=== PATIENT | female | born 1990 | race Caucasian/White ===

== ENCOUNTER 2016-10-09 14:36 | Emergency (ER) | payer MEDICAID ==
[2016-10-09 14:55] LABS: BILIRUBIN,URINE NEGATIVE (NEGATIVE)
[2016-10-09 14:58] LABS: HCG UR QUAL NEGATIVE; UA CHARGE (STRIP ONLY) YES; UR CULTURE IF IND NOT INDICATED
[2016-10-09] MEDS ORDERED: KETOROLAC 60 MG/2 ML VIAL IVP STA (15:02)
[2016-10-09] MEDS ORDERED: SODIUM CHLORIDE 0.9% 1,000 ML IV ONE (15:04)
--- NOTE | 2016-10-09 15:05 | ED Physician Documentation ---
History of Present Illness - Stated complaint Stated Complaint: BACK PX - Chief complaint Chief Complaint: Abd Pain - History obtained from History obtained from: Patient, Family - History of Present Illness Timing: Today Pain level max: 9 Pain level now: 9 Quality: sharp, aching, pain Improved by: nothing Worsened by: moving, palpation - Additonal information Additional information: Patient is a 26-year-old female who presents to the emergency department with right flank pain. This is been ongoing since 9 AM today. Has not taken anything for the pain at home. Denies any fevers, nausea, vomiting. States her urine has been dark recently. Is not having dysuria. No history of renal stones Review of Systems Constitutional: denies: Fever, Chills GI: denies: Vomiting : denies: Dysuria, Frequency, Hesitancy, Now EGA Skin: denies: Rash Musculoskeletal: denies: Neck pain Neurologic: denies: Focal weakness, Numbness, Headache PD PAST MEDICAL HISTORY - Past Medical History Past Medical History: No - Past Surgical History Past Surgical History: No - Present Medications Home Medications: Ambulatory Orders Medication Instructions Recorded Confirmed Hydrocodone/Acetaminophen 1 - 2 each PO Q6H PRN #14 tablet 10/09/16 [Hydrocodon-Acetaminophen 5-325] Ibuprofen [Motrin] 800 mg PO Q8H PRN #30 tablet 10/09/16 - Allergies Allergies/Adverse Reactions: Allergies Allergy/AdvReac Type Severity Reaction Status Date / Time zinc oxide Allergy Rash Verified 10/09/16 14:46 - Living Situation Living Situation: reports: With family Living Arrangement: reports: At home - Social History Does the pt smoke?: No Smoking Status: Never smoker Does the pt drink ETOH?: No - Immunizations Immunizations are current?: Yes - POLST Patient has POLST: Yes PD ED PE NORMAL - Vitals Vital signs reviewed: Yes - General General: Alert and oriented X 3, Other (appears uncomfortable) - HEENT HEENT: Moist mucous membranes - Neck Neck: Supple, no meningeal sign - Cardiac Cardiac: RRR, Strong equal pulses - Respiratory Respiratory: No respiratory distress, Clear bilaterally - Abdomen Abdomen: Soft, Non distended, Other (mild TTP RUQ) - Back Back: No spinal TTP, Other (R CVAT) - Derm Derm: Warm and dry, No rash - Extremities Extremities: No calf tenderness / cord - Neuro Neuro: Alert and oriented X 3 - Psych Psych: Normal mood, Normal affect Results - Vitals Vitals: Vital Signs - 24 hr 10/09/16 10/09/16 14:42 16:18 Temperature 36.6 C Heart Rate 96 57 L Respiratory 17 19 Rate Blood Pressure 128/85 H 122/71 O2 Saturation 99 98 Oxygen O2 Source Room air - Labs Labs: Laboratory Tests 10/09/16 10/09/16 10/09/16 14:45 15:09 15:09 WBC 8.8 RBC 4.88 Hgb 14.1 Hct 41.9 MCV 85.7 MCH 29.0 MCHC 33.8 RDW 13.0 Plt Count 243 MPV 8.0 Neut # 5.4 Lymph # 2.4 [place] # 0.7 Eos # 0.2 Baso # 0.0 Absolute Nucleated RBC 0.00 Nucleated RBCs 0.0 Sodium 139 Potassium 4.0 Chloride 103 Carbon Dioxide 29 Anion Gap 7.0 BUN 12 Creatinine 0.6 Estimated GFR (MDRD) 119 Glucose 98 Calcium 9.6 Total Bilirubin 0.5 AST 14 ALT 12 Alkaline Phosphatase 67 Total Protein 7.3 Albumin 4.2 Globulin 3.1 Albumin/Globulin Ratio 1.4 Lipase 22 Urine Color YELLOW Urine Clarity CLEAR Urine pH 6.0 Ur Specific [place] 1.020 Urine Protein NEGATIVE Urine Glucose (UA) NEGATIVE Urine Ketones NEGATIVE Urine Occult Blood TRACE-LYSE Urine Nitrite NEGATIVE Urine Bilirubin NEGATIVE Urine Urobilinogen 0.2 (NORMAL) Ur Leukocyte Esterase NEGATIVE Ur Microscopic Review NOT INDICATED Urine Culture Comments NOT INDICATED Urine HCG, Qual NEGATIVE - Rads (name of study) CT abd/pelvis Radiology: Prelim report reviewed, EMP read contemporaneously, See rad report ( Nonobstructing 1 mm right intrarenal stone with no ureteral stones or obstruction. IUD in place. Cholecystectomy noted, with no dilated ducts. ) PD MEDICAL DECISION MAKING - ED course Complexity details: reviewed results, re-evaluated patient, considered differential (no cauda equina, no spinal epidural abscess, no fracture, no aortic dissection or evidence of aneursym rupture), d/w patient, d/w family ED course: Patient is a 26-year-old female with right flank pain. She does have a nonobstructing 1 mm right intrarenal stone, but no visible ureteral stones or obstruction. Possible she passed a small renal stone today? Possible muscle strain? No evidence of liver or kidney etiology. No evidence of pyelonephritis. Pain well controlled in the emergency department. She is very well-appearing, nontoxic. No fevers. Will trial her on pain medication for home and follow-up with her doctor. Patient and family counseled regarding signs and symptoms for which I believe and urgent re-evaluation would be necessary. Patient with good understanding of and agreement to plan and is comfortable going home at this time This document was made in part using voice recognition software. While efforts are made to proofread this document, sound alike and grammatical errors may occur. Departure - Departure Disposition: Home, Self Care Clinical Impression: Back pain Qualifiers: Back pain location: low back pain Chronicity: acute Back pain laterality: right Sciatica presence: without sciatica Qualified Code(s): M54.5 - Low back pain Condition: Good Instructions: ED Acute Pain [facility]O Follow-Up: your,doctor in 1 week if not better [Other] Prescriptions: Hydrocodone/Acetaminophen [Hydrocodon-Acetaminophen 5-325] 1 - 2 each PO Q6H PRN #14 tablet PRN Reason: pain Ibuprofen [Motrin] 800 mg PO Q8H PRN #30 tablet PRN Reason: PAIN &/OR FEVER Comments: The cause of your symptoms is unclear today. It may be related to a small kidney stone that you have passed. Return if you worsen. Do not drink alcohol or drive while on narcotic pain medicine. Note that many narcotic pain relievers also contain tylenol/acetaminophen. Please ensure that your total dose of acetaminophen from all sources does not exceed 3 grams (3000mg) per day. You may constipated on this medication, take a stool softener such as "Colace" twice a day while you are on it. Also recommend a hlic-nwa-nbbgjhk laxative such as senna or MiraLAX any day that you do not have a bowel movement. If you received narcotic pain medication in the emergency department, do not drive or operate machinery for the next 24 hours. Your blood pressure was elevated today on check in to the emergency department. This does not mean that you have hypertension, it is a common phenomenon to check into the emergency department and have elevated blood pressure. I recommend that you see your primary care physician within the week to have it rechecked when you're feeling better. Discharge Date/Time: 10/09/16 16:39
[2016-10-09] MEDS ORDERED: KETOROLAC 30 MG/ML VIAL ONE (15:11)
[2016-10-09 15:15] LABS: BASOPHILS % (AUTO) 0.5 %; EOSINOPHILS # (AUTO) 0.2 10^3/uL (0.0-0.7); EOSINOPHILS % (AUTO) 2.6 %; HCT - HEMATOCRIT 41.9 % (37.0-47.0); HGB - HEMOGLOBIN 14.1 g/dL (12.0-16.0); LYMPHOCYTES # (AUTO) 2.4 10^3/uL (1.5-3.5); LYMPHOCYTES % (AUTO) 27.7 %; MEAN CORPUSCULAR HGB CONC 33.8 g/dL (32.0-36.0); MEAN CORPUSCULAR VOLUME 85.7 fL (81.0-99.0); MONOCYTES # (AUTO) 0.7 10^3/uL (0.0-1.0); MONOCYTES % (AUTO) 7.8 %; NEUTROPHILS # (AUTO) 5.4 10^3/uL (1.5-6.6); NEUTROPHILS % (AUTO) 61.4 %; RED BLOOD COUNT 4.88 10^6/uL (4.20-5.40); UNCORRECTED WHITE BLOOD COUNT 8.8 x10^3/uL; WHITE BLOOD COUNT 8.8 x10^3/uL (4.8-10.8)
[2016-10-09 15:28] LABS: ALBUMIN/GLOBULIN RATIO 1.4 (1.0-2.2); BILIRUBIN,TOTAL 0.5 mg/dL (0.2-1.0); CALCIUM 9.6 mg/dL (8.5-10.3); CREATININE 0.6 mg/dL (0.4-1.0); TOTAL PROTEIN 7.3 g/dL (6.7-8.2)
[2016-10-09] MEDS ORDERED: IOPAMIDOL-300 100 ML VIAL IVP ONE (15:47)
[2016-10-09] MEDS ORDERED: HYDROcod/ACETAM 5/325 MG TABLET PO STA (16:18)
--- NOTE | 2016-10-09 16:18 | CT Report ---
EXAM: CT ABDOMEN AND PELVIS EXAM DATE: 10/09/2016 03:49 p.m. CLINICAL HISTORY: Right flank and right upper quadrant pain. COMPARISONS: None. TECHNIQUE: Routine helical CT imaging was performed through the abdomen and pelvis. IV contrast: 100 mL of Isovue-300. Enteric contrast: No. Reconstructions: Coronal and sagittal. In accordance with CT protocol optimization, one or more of the following dose reduction techniques w ere utilized for this exam: automated exposure control, adjustment of mA and/or KV based on patient s ize, or use of iterative reconstructive technique. FINDINGS: Lung Bases: Unremarkable. Liver: Normal. No masses. Gallbladder/Bile Ducts: Cholecystectomy. No dilated ducts. Spleen: Normal. Pancreas: Normal. Adrenal Glands: Normal. Kidneys: Nonobstructing 1 mm right intrarenal stone. No ureteral stones or obstruction. Peritoneal Cavity/Bowel: Normal. No free fluid, free air or adenopathy. No masses or acute inflammato ry process. The appendix is well visualized and normal. Pelvic Organs: IUD in place, otherwise unremarkable reproductive organs and bladder. Vasculature: No aneurysms or other significant abnormality. Bones: No significant abnormality. Other: None. IMPRESSION: 1. Nonobstructing 1 mm right intrarenal stone with no ureteral stones or obstruction. 2. IUD in place. 3. Cholecystectomy noted, with no dilated ducts. JESSICAA Referring Provider Line: [phone] SITE ID: [id number]
[2016-10-09 16:20] VITALS: BP 122/71
[2016-10-09] MEDS ORDERED: HYDROcod/ACETAM 5/325 MG TABLET ONE (16:20)
== END 2016-10-09 16:39 | disposition home or self-care (01) ==
LOC: ED 14:36
DX: R10.9 Unspecified abdominal pain (principal); M54.5 Low back pain; N20.0 Calculus of kidney; R03.0 Elevated blood-pressure reading, without diagnosis of hypertension
CPT/HCPCS: 36415; 74177; 80053; 81003; 81025; 83690; 85025; 96374; 99283; 99284; A9270; Q9967; 81001; 87086

== ENCOUNTER 2017-07-30 12:02 | Emergency (ER) | payer MEDICAID ==
[2017-07-30 12:18] VITALS: BP 140/91
--- NOTE | 2017-07-30 12:22 | ED Physician Documentation ---
PD HPI URI - Stated complaint Stated Complaint: FEVER/SWEATING/WEAKNESS,RT EAR PX - Chief complaint Chief Complaint: General - History obtained from History obtained from: Patient - History of Present Illness Timing - onset: How many days ago (5-6) Timing duration: Days Timing details: Gradual onset, Still present Associated symptoms: Fever, Ear pain (just the past day), Nasal congestion (5-6 days), Sore throat, Dry cough Contributing factors: No: Sick contact, Travel, Immunocompromised Similar symptoms before: Has not had sx before Recently seen: Not recently seen Review of Systems Constitutional: reports: Fever, Chills Ears: reports: Ear pain (for a day) Nose: reports: Rhinorrhea / runny nose, Congestion Throat: reports: Sore throat Respiratory: reports: Cough GI: denies: Abdominal Pain, Nausea, Vomiting, Diarrhea : denies: Dysuria Skin: denies: Rash PD PAST MEDICAL HISTORY - Past Medical History Cardiovascular: None Respiratory: None Neuro: None Endocrine/Autoimmune: None - Past Surgical History Past Surgical History: No - Present Medications Home Medications: Ambulatory Orders Medication Instructions Recorded Confirmed Albuterol Sulf [Ventolin Hfa 1 - 2 puffs INH Q4HR PRN #1 inhaler 07/30/17 Inhaler] Amoxicillin 500 mg PO TID #20 capsule 07/30/17 Benzonatate [Tessalon] 100 mg PO TID PRN #25 capsule 07/30/17 Dexamethasone [Decadron] 4 mg PO DAILY #5 tablet 07/30/17 - Allergies Allergies/Adverse Reactions: Allergies Allergy/AdvReac Type Severity Reaction Status Date / Time zinc oxide Allergy Rash Verified 07/30/17 12:18 - Social History Does the pt smoke?: No Smoking Status: Never smoker Does the pt drink ETOH?: No - Immunizations Immunizations are current?: Yes - POLST Patient has POLST: Yes PD ED PE NORMAL - Vitals Vital signs reviewed: Yes - General General: Alert and oriented X 3, No acute distress, Well developed/nourished - HEENT HEENT: Pharynx benign. No: Ears normal (both TMs red with bulging membrane. Left worse than right. ) - Neck Neck: Supple, no meningeal sign, No adenopathy - Cardiac Cardiac: RRR, No murmur - Respiratory Respiratory: Clear bilaterally - Abdomen Abdomen: Soft, Non tender - Derm Derm: Normal color, Warm and dry, No rash - Neuro Neuro: Alert and oriented X 3, No motor deficit, Normal speech Results - Vitals Vitals: Oxygen O2 Source Room air PD MEDICAL DECISION MAKING - ED course Complexity details: considered differential (has had URI and now ear pain. Both ears look red and distended and enough so to look like real OM rather than effect of the URI. Left ear appears worse than right. ), d/w patient Departure - Departure Disposition: 01 Home, Self Care Clinical Impression: Upper respiratory infection Qualifiers: URI type: unspecified URI Qualified Code(s): J06.9 - Acute upper respiratory infection, unspecified Otitis media Qualifiers: Otitis media type: suppurative Chronicity: acute Laterality: bilateral Recurrence: not specified as recurrent Spontaneous tympanic membrane rupture: without spontaneous rupture Qualified Code(s): H66.003 - Acute suppurative otitis media without spontaneous rupture of ear drum, bilateral Condition: Stable Record reviewed to determine appropriate education?: Yes Instructions: ED Otitis Media Acute Adult, ED URI Viral W Wheezing Prescriptions: Albuterol Sulf [Ventolin Hfa Inhaler] 1 - 2 puffs INH Q4HR PRN #1 inhaler PRN Reason: Shortness Of Air/Wheezing Amoxicillin 500 mg PO TID #20 capsule Benzonatate [Tessalon] 100 mg PO TID PRN #25 capsule PRN Reason: Cough Dexamethasone [Decadron] 4 mg PO DAILY #5 tablet Comments: Drink lots of fluids. Tylenol or ibuprofen if needed for pains and fevers. Use your albuterol inhaler 2 puffs 4 times a day for the next 7-10 days for wheezing and cough. Decadron daily for 5 more days to also help with inflammation in the bronchioles and sinuses. This will reduce symptoms. Use Tessalon if needed for cough. Most of this is likely viral but the ear infections particularly may be bacterial and so add amoxicillin 3 times a day for a week. Recheck if not improving well over the next 2-3 days. Discharge Date/Time: 07/30/17 13:10
[2017-07-30] MEDS ORDERED: DEXAMETHASONE 10 MG/ML VIAL PO STA (12:33)
[2017-07-30] MEDS ORDERED: BENZONATATE 100 MG CAPSULE PO STA (12:33)
[2017-07-30] MEDS ORDERED: ALBUTEROL NEB 2.5 MG/3 ML INH STA (12:33)
[2017-07-30] MEDS ORDERED: AMOXICILLIN 250 MG CAPSULE PO STA (12:33)
== END 2017-07-30 13:10 | disposition home or self-care (01) ==
LOC: ED 12:02
DX: J06.9 Acute upper respiratory infection, unspecified (principal); H66.003 Acute suppurative otitis media without spontaneous rupture of ear drum, bilateral
CPT/HCPCS: 94640; 99283; A9270

== ENCOUNTER 2018-01-02 13:30 | Emergency (ER) | payer MEDICAID ==
[2018-01-02] MEDS ORDERED: BUFFERED LIDOCAINE 10 ML SYRINGE SUBQ ONE (14:44)
--- NOTE | 2018-01-02 14:46 | ED Physician Documentation ---
PD HPI SKIN - Stated complaint Stated Complaint: INFECTED SORE LT SIDE - Chief complaint Chief Complaint: Wound - History obtained from History obtained from: Patient - History of Present Illness Timing - onset: Other (Painful lesion that is draining a little bit on the left lower abdominal wall for about 5 days without fevers or chills.) Review of Systems Constitutional: denies: Fever, Chills Respiratory: reports: Reviewed and negative GI: reports: Reviewed and negative : reports: Reviewed and negative PD PAST MEDICAL HISTORY - Past Medical History Cardiovascular: None Respiratory: None Endocrine/Autoimmune: None - Past Surgical History Past Surgical History: No 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 - Present Medications Home Medications: Ambulatory Orders Medication Instructions Recorded Confirmed Clindamycin HCl [Clindamycin 150MG 2 tab PO QID #80 capsule 01/02/18 CAP] Hydrocodone/Acetaminophen 1 - 2 each PO Q6H PRN #14 tablet 01/02/18 [Hydrocodon-Acetaminophen 5-325] - Allergies Allergies/Adverse Reactions: Allergies Allergy/AdvReac Type Severity Reaction Status Date / Time zinc oxide Allergy Rash Verified 01/02/18 13:48 - Social History Does the pt smoke?: No Smoking Status: Never smoker Does the pt drink ETOH?: No Does the pt have substance abuse?: Yes - Immunizations Immunizations are current?: Yes - POLST Patient has POLST: Yes PD ED PE NORMAL - Vitals Vital signs reviewed: Yes - General General: Alert and oriented X 3, No acute distress - Abdomen Abdomen: Soft, Non tender - Derm Derm: Other (2-Centimeter pointed abscess on the left lower abdominal wall with mild surrounding cellulitis. No active drainage.) - Neuro Neuro: Alert and oriented X 3, Normal speech Results - Vitals Vitals: Vital Signs - 24 hr 01/02/18 13:43 Temperature 36.4 C L Heart Rate 89 Respiratory 16 Rate Blood Pressure 147/94 H O2 Saturation 99 Oxygen O2 Source Room air Procedures - Abscess I&D (location) L abd wall Preparation: Betadine, Lidocaine 1% Incision: Incised with scalpel, Purulent drainage, Loculations broken, Packed (with 1/4 inch), Culture obtained Other: Pt tolerated well, Dressing applied, Antibiotic prescribed PD MEDICAL DECISION MAKING - Sepsis Event Vital Signs: Vital Signs - 24 hr 01/02/18 13:43 Temperature 36.4 C L Heart Rate 89 Respiratory 16 Rate Blood Pressure 147/94 H O2 Saturation 99 Oxygen O2 Source Room air Departure - Departure Disposition: 01 Home, Self Care Clinical Impression: Abscess Condition: Good Record reviewed to determine appropriate education?: Yes Instructions: ED Abscess IandD Prescriptions: Clindamycin HCl [Clindamycin 150MG CAP] 2 tab PO QID #80 capsule Hydrocodone/Acetaminophen [Hydrocodon-Acetaminophen 5-325] 1 - 2 each PO Q6H PRN #14 tablet PRN Reason: pain Comments: We are performing a wound culture, the results should be done in 48-72 hours. If antibiotic change is necessary we will call you. Return if worse in the meantime, especially if you develop increased pain, fevers, cannot keep down the medication. Otherwise follow-up with your physician in approximately 2-3 days. Your blood pressure was elevated today on check into the emergency department. This does not mean that you have hypertension, it is a common phenomenon to come to the emergency department and have elevated blood pressure. I recommend that you see your primary care physician within the week to have it rechecked when you are feeling better. Forms: Activity restrictions
[2018-01-02 15:36] VITALS: BP 138/97
== END 2018-01-02 15:36 | disposition home or self-care (01) ==
LOC: ED 13:30
DX: L02.211 Cutaneous abscess of abdominal wall (principal); L03.311 Cellulitis of abdominal wall; R03.0 Elevated blood-pressure reading, without diagnosis of hypertension
CPT/HCPCS: 10060; 87070; 87181; 87205; 99282; 99283

== ENCOUNTER 2018-01-04 10:05 | Emergency (ER) | payer MEDICAID ==
[2018-01-04 10:23] VITALS: BP 119/69
--- NOTE | 2018-01-04 11:16 | ED Physician Documentation ---
PD HPI WOUND RECHECK - Stated complaint Stated Complaint: PACKING REMOVAL - Chief complaint Chief Complaint: Wound - Histroy obtained from History obtained from: Patient, Family - History of Present Illness Location: Abdomen Timing - onset: How many weeks ago (1) Associated symptoms: Redness, Swelling, Drainage Similar symptoms before: Diagnosis (abscess) Recently seen: Emergency Dept - Additional information Additional information: 27-year-old female is seen in the emergency department 2 days ago for an abscess that is been present for about 5 days in the left anterior abdominal wall. She had this incised and drained and packing was placed. A culture was obtained. She has been placed on clindamycin. 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 She is noted that yesterday pain was severe and she has had to take her pain medication every 4 hours. She indicates that today the pain is somewhat better as is the amount of redness. 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 - Present Medications Home Medications: Ambulatory Orders Medication Instructions Recorded Confirmed Clindamycin HCl [Clindamycin 150MG 2 tab PO QID #80 capsule 01/02/18 CAP] Hydrocodone/Acetaminophen 1 - 2 each PO Q6H PRN #14 tablet 01/02/18 [Hydrocodon-Acetaminophen 5-325] HYDROcod/ACETAM 5/325 [[place] 5/325] 1 - 2 ea PO Q6H PRN #15 tablet 01/04/18 - Allergies Allergies/Adverse Reactions: Allergies Allergy/AdvReac Type Severity Reaction Status Date / Time zinc oxide Allergy Rash Verified 01/04/18 10:23 - Social History Does the pt smoke?: No Smoking Status: Never smoker Does the pt drink ETOH?: No Does the pt have substance abuse?: Yes - Immunizations Immunizations are current?: Yes - POLST Patient has POLST: Yes PD ED PE NORMAL - Vitals Vital signs reviewed: Yes (normal ) - General General: No acute distress, Well developed/nourished - HEENT HEENT: Atraumatic, PERRL, EOMI - Respiratory Respiratory: No respiratory distress - Abdomen Abdomen: Other (over the left lower abdominal wall is an area of erythema with a wick with drainage and the area is tender. The area is 5cm in size. 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, No motor deficit, No sensory deficit, Normal speech Eye Opening: Spontaneous Motor: Obeys Commands Verbal: Oriented GCS Score: 15 - Psych Psych: Normal mood, Normal affect Results - Vitals Vitals: Vital Signs - 24 hr 01/04/18 10:22 Temperature 36.4 C L Heart Rate 78 Respiratory 16 Rate Blood Pressure 119/69 O2 Saturation 96 Oxygen O2 Source Room air PD MEDICAL DECISION MAKING - ED course Complexity details: reviewed old records, considered differential, d/w patient, d/w family ED course: 27 year old female with an abscess to the left lower abdominal wall had incision and drainage done 2 days ago here in the emergency department with packing placed. She is continued to have drainage she has continued to have pain and redness and she presents to the emergency department for recheck of the wound to day. She does state that is slightly better today than yesterday. The margins of the wound are marked in 3 successions the center area around the abscess itself which is the most erythematous there is a 5 cm area surrounding that that is less erythematous and much larger area surrounding that that is pale pink and section of the packing is removed and drainage expressed. Patient is instructed to return to the emergency department tomorrow for for reevaluation of her wound. - Sepsis Event Vital Signs: Vital Signs - 24 hr 01/04/18 10:22 Temperature 36.4 C L Heart Rate 78 Respiratory 16 Rate Blood Pressure 119/69 O2 Saturation 96 Oxygen O2 Source Room air Departure - Departure Disposition: 01 Home, Self Care Clinical Impression: Abscess Condition: Stable Instructions: ED Abscess IandD Follow-Up: [facility] [Provider Group] Prescriptions: HYDROcod/ACETAM 5/325 [[place] 5/325] 1 - 2 ea PO Q6H PRN #15 tablet PRN Reason: Pain Comments: Use a warm compress to the area twice per day and return to the emergency department tomorrow for reevaluation of this wound. Forms: Activity restrictions
== END 2018-01-04 11:55 | disposition home or self-care (01) ==
LOC: ED 10:05
DX: L02.211 Cutaneous abscess of abdominal wall (principal); R10.32 Left lower quadrant pain; A49.02 Methicillin resistant Staphylococcus aureus infection, unspecified site
CPT/HCPCS: 99283

== ENCOUNTER 2018-01-05 09:23 | Emergency (ER) | payer MEDICAID ==
--- NOTE | 2018-01-05 12:07 | ED Physician Documentation ---
PD HPI ABD PAIN - History obtained from History obtained from: Patient, Family - History of Present Illness Timing - onset: How many days ago (8) Timing - duration: Days (8) Timing - details: Gradual onset, Still present Quality: Sharp, Pain Location: LLQ Associated symptoms: No: Fever, Nausea Similar symptoms before: Diagnosis (abscess) Recently seen: Emergency Dept - Additional information Additional information: 27-year-old female with an abscess to the left abdominal wall has had the abdomen abscess incised and drained 3 days ago she returned to the emergency department yesterday with an increase in her symptoms some packing was removed. She continued to have symptoms the margins of the infection were marked and she was continued on clindamycin. Culture of the abscess revealed MRSA sensitive to Clinda and she returns today for reexamination and further packing removal. She states that today her pain is much improved in general but there is continued redness. She did use a heating pack to the area last night. Review of Systems Constitutional: denies: Fever, Chills, Myalgias, Fatigue Eyes: denies: Decreased vision Ears: denies: Ear pain Nose: denies: Congestion Throat: denies: Sore throat Cardiac: denies: Chest pain / pressure Respiratory: denies: Dyspnea, Cough GI: reports: Abdominal Pain. 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 - Present Medications Home Medications: Ambulatory Orders Medication Instructions Recorded Confirmed Clindamycin HCl [Clindamycin 150MG 2 tab PO QID #80 capsule 01/02/18 CAP] Hydrocodone/Acetaminophen 1 - 2 each PO Q6H PRN #14 tablet 01/02/18 [Hydrocodon-Acetaminophen 5-325] RX: HYDROcod/ACETAM 5/325 [[place] 1 - 2 ea PO Q6H PRN #15 tablet 01/04/18 5/325] - Allergies Allergies/Adverse Reactions: Allergies Allergy/AdvReac Type Severity Reaction Status Date / Time zinc oxide Allergy Rash Verified 01/04/18 10:23 - Social History Does the pt smoke?: No Smoking Status: Never smoker Does the pt drink ETOH?: No Does the pt have substance abuse?: Yes - Immunizations Immunizations are current?: Yes - POLST Patient has POLST: Yes PD ED PE NORMAL - Vitals Vital signs reviewed: Yes (hypertensive ) - General General: Alert and oriented X 3, No acute distress, Well developed/nourished - HEENT HEENT: Atraumatic, PERRL - Respiratory Respiratory: No respiratory distress - Abdomen Abdomen: Soft, Other (over the left lower abdomen there is an abscess site that appears improved from yesterday and does not cause the patient pain to examine as it did yesterday. There is erythema that has lightened over the sourrounding area. There is very light erythema that has extended beyond the borders drawn yesterday. It is non-tender and non-blancing. It seems it may be from the heating pack. The central abscess area itself continues to drain and the remainder of the packing is removed. Dense erythema of this area has receded from the markings from yesterday .) - Derm Derm: Normal color, Warm and dry, No rash - Extremities Extremities: No deformity, No edema - Neuro Neuro: Alert and oriented X 3, No motor deficit, No sensory deficit, Normal speech Eye Opening: Spontaneous Motor: Obeys Commands Verbal: Oriented GCS Score: 15 - Psych Psych: Normal mood, Normal affect Results - Vitals Vitals: Vital Signs - 24 hr 01/05/18 01/05/18 09:42 12:43 Temperature 36.3 C L 36.7 C Heart Rate 91 72 Respiratory 18 16 Rate Blood Pressure 132/84 H 123/77 O2 Saturation 96 98 Oxygen O2 Source Room air PD MEDICAL DECISION MAKING - ED course Complexity details: reviewed old records, considered differential, d/w patient, d/w family ED course: 27-year-old female with an abscess to the left lower abdominal wall continues to need surveillance. She does not have obvious worsening but there is concerned about the erythema spreading beyond the margins. This erythema looks like it is nonblanching and I am concerned that this may be related to her use of the heating pack and may have nothing to do with the infection. Certainly the patient has marked improvement in her level of pain and discomfort. I have asked the patient return in the next 1-2 days for reexamination. - Sepsis Event Vital Signs: Vital Signs - 24 hr 01/05/18 01/05/18 09:42 12:43 Temperature 36.3 C L 36.7 C Heart Rate 91 72 Respiratory 18 16 Rate Blood Pressure 132/84 H 123/77 O2 Saturation 96 98 Oxygen O2 Source Room air Departure - Departure Disposition: 01 Home, Self Care Clinical Impression: Abscess Condition: Stable Instructions: ED Abscess IandD Follow-Up: [facility] [Provider Group] Comments: Return here for re-exam in the next 1-2 days. Forms: Activity restrictions Discharge Date/Time: 01/05/18 12:44
[2018-01-05 12:44] VITALS: BP 123/77
== END 2018-01-05 12:44 | disposition home or self-care (01) ==
LOC: ED 09:23
DX: L02.211 Cutaneous abscess of abdominal wall (principal); B95.62 Methicillin resistant Staphylococcus aureus infection as the cause of diseases classified elsewhere
CPT/HCPCS: 99282; 99283

== ENCOUNTER 2018-01-09 09:27 | Emergency (ER) | payer MEDICAID ==
[2018-01-09 09:32] VITALS: BP 132/78
--- NOTE | 2018-01-09 09:41 | ED Physician Documentation ---
PD HPI WOUND RECHECK - Stated complaint Stated Complaint: WOUND CHECK - Chief complaint Chief Complaint: Wound - Histroy obtained from History obtained from: Patient - History of Present Illness Location: Abdomen Timing - onset: How many weeks ago (2) Similar symptoms before: Diagnosis (abscess) Recently seen: Emergency Dept - Additional information Additional information: 27-year-old female with a staph abscess that was incised and drained 1 week ago had significant infectious load associated with this and she had to follow-up visits in the emergency department for concerning appearing infection. This now appears to have resolved and she has only the wound left to heal. She has several more days of clindamycin to take. She wants a note to go back to work. Review of Systems Constitutional: denies: Fever, Chills, Myalgias, Fatigue, Sweats Eyes: denies: Decreased vision Ears: denies: Ear pain Nose: denies: Congestion Respiratory: denies: Cough GI: denies: Vomiting Skin: reports: Other (healing abscess to the left abd). 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 - Present Medications Home Medications: Ambulatory Orders Medication Instructions Recorded Confirmed Clindamycin HCl [Clindamycin 150MG 2 tab PO QID #80 capsule 01/02/18 CAP] - Allergies Allergies/Adverse Reactions: Allergies Allergy/AdvReac Type Severity Reaction Status Date / Time zinc oxide Allergy Rash Verified 01/09/18 09:32 - Social History Does the pt smoke?: No Smoking Status: Never smoker Does the pt drink ETOH?: No Does the pt have substance abuse?: Yes - Immunizations Immunizations are current?: Yes - POLST Patient has POLST: Yes PD ED PE NORMAL - Vitals Vital signs reviewed: Yes (hypertensive mild ) - General General: Alert and oriented X 3, No acute distress, Well developed/nourished - HEENT HEENT: Atraumatic, PERRL, EOMI - Respiratory Respiratory: No respiratory distress - Abdomen Abdomen: Soft, Non tender, Other (There is a residual 3cm round area of skin ulceration with a granulating base and no surrounding erythema. The wound is much improved from prior visit and the cellulitis is resolved. 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, No motor deficit, No sensory deficit, Normal speech Eye Opening: Spontaneous Motor: Obeys Commands Verbal: Oriented GCS Score: 15 - Psych Psych: Normal mood, Normal affect Results - Vitals Vitals: Vital Signs - 24 hr 01/09/18 09:29 Temperature 36.8 C Heart Rate 94 Respiratory 18 Rate Blood Pressure 132/78 H O2 Saturation 98 Oxygen O2 Source Room air PD MEDICAL DECISION MAKING - ED course Complexity details: reviewed old records, reviewed results, re-evaluated patient, considered differential, d/w patient ED course: 27-year-old female with a abdominal wall abscess that is healing appears to have resolved her cellulitis and has only the healing of the wound left. This looks like it is granulating well and she is expected to have full recovery. I have instructed her to continue using a dressing over this to finish her antibiotic and to use some Neosporin as a dressing. - Sepsis Event Vital Signs: Vital Signs - 24 hr 01/09/18 09:29 Temperature 36.8 C Heart Rate 94 Respiratory 18 Rate Blood Pressure 132/78 H O2 Saturation 98 Oxygen O2 Source Room air Departure - Departure Disposition: 01 Home, Self Care Clinical Impression: Abscess Condition: Stable Instructions: ED Abscess IandD Follow-Up: [facility] [Provider Group] Forms: Activity restrictions
== END 2018-01-09 09:56 | disposition home or self-care (01) ==
LOC: ED 09:27
DX: L02.11 Cutaneous abscess of neck (principal)
CPT/HCPCS: 99281; 99282

== ENCOUNTER 2018-08-11 07:24 | Emergency (ER) | payer SELFPAY ==
--- NOTE | 2018-08-11 07:42 | ED Physician Documentation ---
PD HPI CHEST PAIN - Stated complaint Stated Complaint: CHEST PX - Chief complaint Chief Complaint: General - History obtained from History obtained from: Patient, Family - History of Present Illness Timing - onset: Enter time (429), Today Timing - onset during: Sleep Timing - duration: Hours Timing - details: Abrupt onset, Still present Quality: Sharp, Pain Location: Left chest Improved by: Rest Worsened by: Inspiration, Movement Associated symptoms: Shortness of air. No: Diaphoresis, Nausea, Vomiting, Feeling faint / dizzy, General Weakness, Palpitations, Cough Similar symptoms before: Has not had sx before Recently seen: Not recently seen - Additional information Additional information: Previously well 28-year-old female awoke at 430 this morning from a sleep with left-sided chest pain. She states the pain is worse with each inspiration and that she has not had this pain previously and she was not ill prior to this. She denies any recent URI symptoms. She denies any wheezing associated with this she denies any swelling of her extremities cough fever or abdominal pain. Review of Systems Constitutional: denies: Fever, Chills, Myalgias Eyes: denies: Decreased vision Ears: denies: Ear pain Nose: denies: Rhinorrhea / runny nose, Congestion Throat: denies: Sore throat Cardiac: reports: Chest pain / pressure. 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 - Present Medications Home Medications: Ambulatory Orders Medication Instructions Recorded Confirmed Clindamycin HCl [Clindamycin 150MG 2 tab PO QID #80 capsule 01/02/18 CAP] Hydrocodone/Acetaminophen 1 - 2 each PO Q6H PRN #14 tablet 08/11/18 [Hydrocodon-Acetaminophen 5-325] - Allergies Allergies/Adverse Reactions: Allergies Allergy/AdvReac Type Severity Reaction Status Date / Time zinc oxide Allergy Rash Verified 01/09/18 09:32 - Social History Does the pt smoke?: No Smoking Status: Never smoker Does the pt drink ETOH?: No Does the pt have substance abuse?: Yes - Immunizations Immunizations are current?: Yes - POLST Patient has POLST: Yes PD ED PE NORMAL - Vitals Vital signs reviewed: Yes (hypertensive ) - General General: Alert and oriented X 3, Well developed/nourished, Other (nasal quality to the voice is explained by the patient as relating to crying from pain ) - HEENT HEENT: Atraumatic, PERRL, EOMI, Ears normal, Moist mucous membranes, Other (2+ cryptic tonsils without exudate) - Neck Neck: Supple, no meningeal sign, No bony TTP - Cardiac Cardiac: RRR, No murmur - Respiratory Respiratory: No respiratory distress, Clear bilaterally, Other (no specific chest wall tenderness ) - Abdomen Abdomen: Soft, Non tender - Back Back: No CVA TTP, No spinal TTP - Derm Derm: Normal color, Warm and dry, No rash - Extremities Extremities: No deformity, No edema - Neuro Neuro: Alert and oriented X 3, 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 services 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, No motor deficit, No sensory deficit, Normal speech Eye Opening: Spontaneous Motor: Obeys Commands Verbal: Oriented GCS Score: 15 - Psych Psych: Normal mood, Normal affect Results - Vitals Vitals: Vital Signs - 24 hr 08/11/18 08/11/18 07:36 10:12 Temperature 98.1 C H Heart Rate 84 80 Respiratory 16 14 Rate Blood Pressure 128/88 H 132/84 H O2 Saturation 99 99 Oxygen O2 Source Room air - EKG (time done) 0734 Rate: Rate (enter#) (80) Ischemia: Normal ST segments Compare to prior EKG: Old EKG unavailable Computer interpretation: Agree with computer - Labs Labs: Laboratory Tests 08/11/18 08/11/18 08/11/18 08:52 08:52 08:52 WBC 7.9 RBC 4.61 Hgb 13.0 Hct 39.8 MCV 86.4 MCH 28.2 MCHC 32.6 RDW 13.3 Plt Count 195 MPV 8.6 Neut # (Auto) 5.2 Lymph # (Auto) 1.8 Dixon # (Auto) 0.7 Eos # (Auto) 0.2 Baso # (Auto) 0.0 Absolute Nucleated RBC 0.00 Nucleated RBC % 0.0 Sodium 140 Potassium 4.0 Chloride 105 Carbon Dioxide 28 Anion Gap 7.0 BUN 9 Creatinine 0.6 Estimated GFR (MDRD) 117 Glucose 106 H Calcium 8.9 Total Bilirubin 0.7 AST 14 ALT 11 Alkaline Phosphatase 56 Troponin I < 0.04 Total Protein 7.1 Albumin 4.0 Globulin 3.1 Albumin/Globulin Ratio 1.3 Lipase 25 - Rads (name of study) chest 2 view Radiology: Prelim report reviewed (Impression: No acute cardiopulmonary abnormality.), EMP read indepedently, See rad report PD MEDICAL DECISION MAKING - ED course Complexity details: reviewed old records, reviewed results, re-evaluated patient, considered differential, d/w patient ED course: 28 y/o female with left sided chest pain with inspiration is diagnosed with pleurisy and given a dose of decadron. Departure - Departure Disposition: 01 Home, Self Care Clinical Impression: Pleurisy Condition: Stable Instructions: ED Chest Pain Pleurisy Follow-Up: [facility] [Provider Group] Prescriptions: Hydrocodone/Acetaminophen [Hydrocodon-Acetaminophen 5-325] 1 - 2 each PO Q6H PRN #14 tablet PRN Reason: pain Forms: Activity restrictions Discharge Date/Time: 08/11/18 10:12
[2018-08-11] MEDS ORDERED: DEXAMETHASONE 10 MG/ML VIAL PO STA (08:21)
[2018-08-11] MEDS ORDERED: CHERRY SYRUP 10 ML UDC PO ONE (08:21)
--- NOTE | 2018-08-11 08:51 | XRAY Report ---
Reason: left sided chest pain with insp Procedure Date: 08/11/2018 Accession Number: [id number] / [id number] Procedure: XR - Chest 2 View X-Ray CPT Code: 07479 FULL RESULT: EXAM: CHEST RADIOGRAPHY EXAM DATE: 08/11/2018 08:34 AM. CLINICAL HISTORY: Left sided chest pain with insp. COMPARISON: CHEST 2 VIEW PA/LAT 01/07/2015 3:24 PM. TECHNIQUE: 2 views. FINDINGS: Lungs/Pleura: No focal opacities evident. No pleural effusion. No pneumothorax. Normal volumes. Mediastinum: Heart and mediastinal contours are unremarkable. Other: None. IMPRESSION: No acute cardiopulmonary abnormality. RADIA
[2018-08-11 09:02] LABS: BASOPHILS % (AUTO) 0.5 %; EOSINOPHILS # (AUTO) 0.2 10^3/uL (0.0-0.7); EOSINOPHILS % (AUTO) 2.1 %; LYMPHOCYTES # (AUTO) 1.8 10^3/uL (1.5-3.5); MEAN CORPUSCULAR HEMOGLOBIN 28.2 pg (27.0-31.0); MEAN CORPUSCULAR HGB CONC 32.6 g/dL (32.0-36.0); MEAN CORPUSCULAR VOLUME 86.4 fL (81.0-99.0); MEAN PLATELET VOLUME 8.6 fL (7.9-10.8); MONOCYTES # (AUTO) 0.7 10^3/uL (0.0-1.0); MONOCYTES % (AUTO) 8.5 %; NEUTROPHILS # (AUTO) 5.2 10^3/uL (1.5-6.6); NEUTROPHILS % (AUTO) 65.9 %; PLT - PLATELET COUNT 195 10^3/uL (130-450); RED BLOOD COUNT 4.61 10^6/uL (4.20-5.40); RED CELL DISTRIBUTION WIDTH 13.3 % (12.0-15.0); WHITE BLOOD COUNT 7.9 x10^3/uL (4.8-10.8)
[2018-08-11 09:18] LABS: ALBUMIN/GLOBULIN RATIO 1.3 (1.0-2.2); BILIRUBIN,TOTAL 0.7 mg/dL (0.2-1.0); CALCIUM 8.9 mg/dL (8.5-10.3); CREATININE 0.6 mg/dL (0.4-1.0); TOTAL PROTEIN 7.1 g/dL (6.7-8.2)
[2018-08-11 10:12] VITALS: BP 132/84
== END 2018-08-11 10:12 | disposition home or self-care (01) ==
LOC: ED 07:24
DX: R09.1 Pleurisy (principal)
CPT/HCPCS: 36415; 71046; 80053; 83690; 84484; 85025; 93005; 99283; 99284

== ENCOUNTER 2019-03-10 23:00 | Outpatient (CLI) | payer SELFPAY | END 2019-03-10 23:01 | disposition critical access hospital (66) | LOC: EMS 23:00 | PROVIDERS: ATTEND Surgery | DX: R55 Syncope and collapse (principal); R41.82 Altered mental status, unspecified; R11.10 Vomiting, unspecified | CPT/HCPCS: A0425; A0429 ==

== ENCOUNTER 2019-03-10 23:16 | Emergency (ER) | payer SELFPAY ==
[2019-03-10] MEDS ORDERED: ONDANSETRON 4 MG/2 ML VIAL ONE (23:18)
[2019-03-10 23:24] VITALS: BP 144/80
[2019-03-10] MEDS ORDERED: SODIUM CHLORIDE 0.9% 1,000 ML IV ONE (23:36)
--- NOTE | 2019-03-10 23:36 | ED Physician Documentation ---
History of Present Illness - Stated complaint Stated Complaint: HBD - Chief complaint Chief Complaint: Abd Pain - History obtained from History obtained from: Family - History of Present Illness Timing: Prior to arrival - Additonal information Additional information: There is a 29-year-old woman who presents by ambulance from a bar. Her friend says that The patient and another person drink a third of a bottle of rum between them and then went to the bar. Within 20 minutes at the bar patient was outside vomiting. She did not fall or hit her head. She was prevented from falling by her friends. Ambulance said she was incoherent but following commands and vomiting in route. Patient knows that she is at a hospital but could not tell me the day. Patient herself is unable to provide any history at this time. 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 - Present Medications Home Medications: Ambulatory Orders Medication Instructions Recorded Confirmed Clindamycin HCl [Clindamycin 150MG 2 tab PO QID #80 capsule 01/02/18 CAP] Hydrocodone/Acetaminophen 1 - 2 each PO Q6H PRN #14 tablet 08/11/18 [Hydrocodon-Acetaminophen 5-325] - Allergies Allergies/Adverse Reactions: Allergies Allergy/AdvReac Type Severity Reaction Status Date / Time zinc oxide Allergy Rash Verified 01/09/18 09:32 - Social History Does the pt smoke?: No Smoking Status: Never smoker Does the pt drink ETOH?: No Does the pt have substance abuse?: Yes - Immunizations Immunizations are current?: Yes - POLST Patient has POLST: Yes PD ED PE NORMAL - Vitals Vital signs reviewed: Yes - General General: Other (Patient has emesis all over her pants and shirt. She smells strongly of alcohol.) - HEENT HEENT: Atraumatic, PERRL, EOMI - Cardiac Cardiac: RRR, No murmur - Respiratory Respiratory: No respiratory distress, Clear bilaterally - Abdomen Abdomen: Normal bowel sounds, Soft - Neuro Neuro: Other (Patient is able to answer questions mumbling. She knows that she is at hospital. She is moving all of her extremities and attempting to help us as we evaluate her.) Results - Vitals Vitals: Vital Signs - 24 hr 03/10/19 23:16 Temperature 35.2 C L Heart Rate 91 Respiratory 18 Rate Blood Pressure 144/80 H O2 Saturation 99 Oxygen O2 Source Room air - Labs Labs: Laboratory Tests 03/10/19 03/10/19 23:36 23:36 WBC 10.9 H RBC 4.44 Hgb 12.6 Hct 38.8 MCV 87.4 MCH 28.4 MCHC 32.5 RDW 12.5 Plt Count 230 MPV 9.7 Neut # (Auto) 5.7 Lymph # (Auto) 4.2 H Spencer # (Auto) 0.6 Eos # (Auto) 0.2 Baso # (Auto) 0.1 Absolute Nucleated RBC 0.00 Nucleated RBC % 0.0 Sodium 141 Potassium 2.8 L Chloride 108 Carbon Dioxide 22 Anion Gap 11.0 BUN 13 Creatinine 0.6 Estimated GFR (MDRD) 117 Glucose 141 H Calcium 8.5 Total Bilirubin 0.5 AST 15 ALT 14 Alkaline Phosphatase 48 Total Protein 6.9 Albumin 3.9 Globulin 3.0 Albumin/Globulin Ratio 1.3 Lipase 25 Ethyl Alcohol 284.0 PD MEDICAL DECISION MAKING - ED course Complexity details: reviewed results, re-evaluated patient, d/w patient, d/w family ED course: Her blood alcohol level was 284. Patient's potassium was only 2.8 I ordered 20 mEq potassium IV. Before that could be started the patient pulled out her IV and was walking about the room because she had to go to the bathroom. She was assisted to the bathroom with a wheelchair and an IV was restarted. She was crying and demanding that she be allowed to go home. The IV was restarted and we started a repeat bolus in the IV potassium but again somehow she disconnected this and did not receive all of the potassium IV. She has not had any further emesis since she is been here and she was heard on the phone calling a friend to come and get her. He arrived in the department. The patient was up and out of the exam bed several times leaning over and picking her close up off the floor and did not fall. Her friend who reports he is the father of her child has stated he will take her home and spend the rest of the night with her. She will be discharged in his care. Departure - Departure Disposition: 01 Home, Self Care Clinical Impression: Alcohol intoxication Qualifiers: Complication of substance-induced condition: uncomplicated Qualified Code(s): F10.920 - Alcohol use, unspecified with intoxication, uncomplicated Vomiting Qualifiers: Vomiting type: unspecified Vomiting Intractability: non-intractable Nausea presence: unspecified Qualified Code(s): R11.10 - Vomiting, unspecified Condition: Good Instructions: ED Alcohol Intoxication Follow-Up: [facility] [Provider Group] Comments: Stop drinking. You should be with someone the remainder of the night so that they can monitor you. Follow-up as needed.
[2019-03-10] MEDS ORDERED: ONDANSETRON 4 MG/2 ML VIAL IVP STA (23:42)
[2019-03-10 23:44] LABS: BASOPHILS # (AUTO) 0.1 10^3/uL (0.0-0.1); BASOPHILS % (AUTO) 0.6 %; EOSINOPHILS # (AUTO) 0.2 10^3/uL (0.0-0.7); EOSINOPHILS % (AUTO) 2.1 %; HGB - HEMOGLOBIN 12.6 g/dL (12.0-16.0); LYMPHOCYTES # (AUTO) 4.2 10^3/uL (1.5-3.5); LYMPHOCYTES % (AUTO) 38.9 %; MEAN CORPUSCULAR HEMOGLOBIN 28.4 pg (27.0-31.0); MEAN CORPUSCULAR HGB CONC 32.5 g/dL (32.0-36.0); MEAN CORPUSCULAR VOLUME 87.4 fL (81.0-99.0); MEAN PLATELET VOLUME 9.7 fL (7.9-10.8); MONOCYTES # (AUTO) 0.6 10^3/uL (0.0-1.0); MONOCYTES % (AUTO) 5.7 %; NEUTROPHILS # (AUTO) 5.7 10^3/uL (1.5-6.6); NEUTROPHILS % (AUTO) 52.2 %; PLT - PLATELET COUNT 230 10^3/uL (130-450); RED BLOOD COUNT 4.44 10^6/uL (4.20-5.40); RED CELL DISTRIBUTION WIDTH 12.5 % (12.0-15.0); WHITE BLOOD COUNT 10.9 x10^3/uL (4.8-10.8)
[2019-03-11] LABS: ALBUMIN 3.9 g/dL (3.2-5.5); ALBUMIN/GLOBULIN RATIO 1.3 (1.0-2.2); BILIRUBIN,TOTAL 0.5 mg/dL (0.2-1.0); CALCIUM 8.5 mg/dL (8.5-10.3); CREATININE 0.6 mg/dL (0.4-1.0); TOTAL PROTEIN 6.9 g/dL (6.7-8.2)
[2019-03-11] MEDS ORDERED: POTASSIUM CHLOR 20 MEQ/100 ML 20 MEQ/100 ML BAG IV ONE (00:25)
[2019-03-11] MEDS ORDERED: SODIUM CHLORIDE 0.9% 1,000 ML IV ONE (00:55)
[2019-03-11] MEDS ORDERED: POTASSIUM CHLORIDE 20 MEQ TABLET PO ONE (01:15)
== END 2019-03-11 01:28 | disposition home or self-care (01) ==
LOC: EDUNIT# → ED 23:16
DX: F10.920 Alcohol use, unspecified with intoxication, uncomplicated (principal); Y90.8 Blood alcohol level of 240 mg/100 ml or more; R11.10 Vomiting, unspecified
CPT/HCPCS: 36415; 80053; 80320; 83690; 85025; 96361; 96365; 96375; 99281; 99284; A9270